=== PATIENT | female | born 1945 | race Caucasian/White ===

== ENCOUNTER 2019-02-08 06:33 | Emergency (ER) | payer MEDICARE ==
[~2019-02-08 06:33] MED LIST: ASPI-757 PO; ASPI-879 PO; CALC100C PO; DIPH-464 PO; DIPH-740 PO; ERG400 PO; HYO375 PO; HYOS0.152 PO; METO-233 PO; METO50TA19 PO; MULTIVIT; NICO-218 TD; PRAV40TA78 PO; RANI-318 PO; RANI-375 PO; [UNRECOGNIZED DRUG - CODE] PO
--- NOTE | 2019-02-08 07:23 | ER Report ---
History and Physical Time Seen By MD: 07:03 Hx. of Stated Complaint: PT FEELS SHORT OF BREATH, DOES NOT FEEL GOOD. HPI/ROS CHIEF COMPLAINT: Patient "doesn't feel well" HISTORY OF PRESENT ILLNESS: Patient is a 73-year-old female who recently had a stroke and October 2018 well in [place]. She is currently on Plavix as an anticoagulant. She states that she is appearing [place] visiting her son because his obyfhk-su-chi . Patient was apparently going back to [place] today but started feeling "not well last night" and this morning noticed some restlessness to her right leg and also some difficulty with balance. He feels that her speech is slow but no obvious slurring is noted. She denies any chest pain or chest pressure. She denies headache. She denies infectious symptoms such as fever cough, congestion. She denies nausea vomiting or abdominal pain. She had a prior stroke with complete resolution in 2012 and was managed here at this hospital. Patient resides in [place] during the winter and in the [place] during the summertime. Patient also feels short of breath at times. She further also feels fatigued and tired. She attributes this fatigue to be more active than usual over the past few days. Despite prior strokes patient does continues to smoke. REVIEW OF SYSTEMS: Constitutional: No fever, no chills. Generalized weakness. Eyes: No discharge. ENT: No sore throat. Cardiovascular: No chest pain, no palpitations. Respiratory: No distress Gastrointestinal: No abdominal pain, no vomiting. Genitourinary: No hematuria. Musculoskeletal: No back pain. Skin: No rashes. Neurological: No headache. Allergies: Coded Allergies: No Known Drug Allergies (Verified , 12/21/07) Home Meds Active Scripts Atorvastatin Calcium (LIPITOR) 20 Mg Tablet, 1 TAB PO QDAY for 90 Days, #90 TAB 0 Refills Prov:GORDO GALICIA MD 02/08/19 Reported Medications Clopidogrel Bisulfate (PLAVIX) 75 Mg Tablet, 1 TAB PO QDAY, TAB 02/08/19 Metoprolol Succinate (METOPROLOL SUCCINATE) 50 Mg Tab.er.24h, 1 TAB PO BID, TAB 10/20/14 Diphenhydramine Hcl (DIPHENHYDRAMINE HCL) 25 Mg Capsule, 25 MG PO Q6-8H, CAPSULE TAKE 1 CAPSULE BY MOUTH EVERY 6 TO 8 HOURS 10/20/14 Ranitidine Hcl (RANITIDINE HCL) 150 Mg Tablet, 1 TAB PO DAILY 10/20/14 Discontinued Reported Medications Aspirin/Calcium Carbonate/Mag (ASPIRIN BUFFERED 325 MG TAB) 325 Mg Tablet, 325 MG PO DAILY 10/20/14 Pravastatin Sodium (PRAVASTATIN SODIUM) 40 Mg Tablet, 1 TAB PO QDAY 10/20/14 Calcium Carbonate/Vitamin D3 (CALCIUM 600 WITH VIT D CHEW TB) 1 Each Tab.chew, 1 EACH PO DAILY, TAB.CHEW 10/20/14 Past Medical/Surgical History Past medical history for hypertension, colitis, partial kidney, eczema, history of cataract extraction, right rotator cuff repair, colonoscopy, hysterectomy, stroke October 2018 Hx Smoking: Yes Smoking Status: Current: Every Day Smoker Hx Substance Use Disorder: No Hx Alcohol Use: Yes Constitutional Vital Sign - Last 24 Hours 02/08/19 02/08/19 02/08/19 02/08/19 06:38 06:39 06:43 06:48 Temp 98.2 Pulse 70 69 Resp 16 15 11 B/P (MAP) 207/110 (142) 207/110 Pulse Ox 88 90 94 O2 Delivery Room Air 02/08/19 02/08/19 02/08/19 02/08/19 06:58 07:00 07:03 07:13 Pulse 66 62 72 Resp 27 17 12 B/P (MAP) 173/93 (119) Pulse Ox 93 94 94 02/08/19 02/08/19 02/08/19 02/08/19 07:18 07:23 07:28 07:30 Pulse 70 66 71 Resp 10 25 0 B/P (MAP) 167/92 (117) Pulse Ox 91 94 92 02/08/19 02/08/19 02/08/19 02/08/19 07:33 07:38 07:51 07:53 Pulse 79 64 Resp 19 6 15 B/P (MAP) 166/85 (112) Pulse Ox 93 94 93 02/08/19 02/08/19 02/08/19 02/08/19 07:58 08:00 08:03 08:08 Pulse 61 63 60 Resp 9 10 8 B/P (MAP) 170/107 (128) Pulse Ox 94 94 96 02/08/19 02/08/19 02/08/19 02/08/19 08:13 08:18 08:23 08:28 Pulse 71 65 63 72 Resp 19 15 16 9 Pulse Ox 96 95 93 93 02/08/19 02/08/19 02/08/19 02/08/19 08:33 08:38 08:43 08:48 Pulse 64 73 63 74 Resp 13 9 10 Pulse Ox 94 94 94 95 02/08/19 02/08/19 02/08/19 02/08/19 09:28 09:30 09:33 09:38 Pulse 62 61 61 B/P (MAP) 160/94 (116) 162/93 (116) Pulse Ox 96 94 94 02/08/19 02/08/19 02/08/19 02/08/19 09:43 09:48 09:53 09:58 Pulse 61 58 63 Pulse Ox 94 95 96 94 02/08/19 02/08/19 02/08/19 02/08/19 10:00 10:03 10:08 10:13 Pulse 68 63 65 B/P (MAP) 149/86 (107) Pulse Ox 94 93 95 Physical Exam General/Constitutional: Patient is awake, alert, nontoxic and in no acute respiratory distress. Head: Normocephalic and atraumatic. Eyes: Conjunctival clear, Pupils are equal and reactive to light. Extraocular muscles are intact and symmetrical. Sclera are clear and anicteric. Ears:External canals are clear. Tympanic membranes are clear with normal landmarks and light reflex. Nares: No rhinorrhea or bleeding. Turbinates are pink and moist. Oropharyngeal: Mucous membranes are moist. There is no pharyngeal erythema or exudate. There are no palatal petechiae. Uvula is midline and symmetrical. Neck: Supple, no adenopathy. Cardiovascular: Heart is regular rate and rhythm without audible murmurs, rubs or gallops. Pulmonary: Lungs are clear to auscultation bilaterally. There are no wheezes, rales, or rhonchi. Chest rise is symmetrical Abdomen: Soft, nontender, no guarding or peritoneal signs. Extremities: No gross deformities, No peripheral cyanosis. Able to move all 4 extremities. Neuro: Alert and oriented X3, Cranial nerves 2 thru 12 are intact and symmetrical. Patient has normal gait. Skin: No rashes, skin is warm dry and well perfused. NIH Stroke Scale: 1 Level of consciousness: Alert -0 Answers both questions correctly-0 Performs both tasks correctly-0 Best Gaze: Normal-0 Visual: No visual loss-0 Facial Palsy: Motor Left Arm: No drift for 10 seconds-0 Motor Right Arm: No drift for 10 seconds-0 Motor Left Leg: No drift for 5 seconds-0 Motor Right Leg: No drift for 5 seconds-0 Limb Ataxia: Absent-0 Sensory: Normal, no sensory loss-0 Best Language: Normal, no aphasia-0 Dysarthria: Mild to moderate dysarthria-1 Extinction and Inattention: No abnormality-0 Medical Decision Making Data Points Result Diagram: 02/08/19 0657 02/08/19 0657 Laboratory Hematology Test 02/08/19 06:57 02/08/19 07:28 Red Blood Count 5.05 M/uL (4.17-5.56) Mean Corpuscular Volume 98.2 fL (80.0-96.0) Mean Corpuscular Hemoglobin 33.7 pg (26.0-33.0) Mean Corpuscular Hemoglobin Concent 34.3 g/dL (32.0-36.0) Red Cell Distribution Width 13.6 % (11.5-14.5) Mean Platelet Volume 8.9 fL (7.2-11.1) Neutrophils (%) (Auto) 65.0 % (39.4-72.5) Lymphocytes (%) (Auto) 25.0 % (17.6-49.6) Monocytes (%) (Auto) 7.5 % (4.1-12.4) Eosinophils (%) (Auto) 1.8 % (0.4-6.7) Basophils (%) (Auto) 0.7 % (0.3-1.4) Nucleated RBC Relative Count (auto) 0.1 /100WBC Neutrophils # (Auto) 3.6 K/uL (2.0-7.4) Lymphocytes # (Auto) 1.4 K/uL (1.3-3.6) Monocytes # (Auto) 0.4 K/uL (0.3-1.0) Eosinophils # (Auto) 0.1 K/uL (0.0-0.5) Basophils # (Auto) 0.0 K/uL (0.0-0.1) Nucleated RBC Absolute Count (auto) 0.00 K/uL Prothrombin Time 12.2 seconds (12.0-14.4) Prothromb Time International Ratio 0.91 Activated Partial Thromboplast Time 39 seconds (23-35) Sodium Level 140 mmol/L (137-145) Potassium Level 3.6 mmol/L (3.5-5.0) Chloride Level 106 mmol/L (98-107) Carbon Dioxide Level 27 mmol/L (22-31) Blood Urea Nitrogen 9 mg/dl (7-18) Creatinine 0.80 mg/dl (0.52-1.04) Glomerular Filtration Rate Calc > 60.0 Random Glucose 103 mg/dl (75-110) Calcium Level 9.7 mg/dl (8.4-10.2) Total Bilirubin 0.4 mg/dl (0.2-1.3) Aspartate Amino Transf (AST/SGOT) 26 U/L (0-35) Alanine Aminotransferase (ALT/SGPT) 19 U/L (0-56) Alkaline Phosphatase 63 U/L (0-126) Troponin I < 0.012 ng/ml Total Protein 7.9 g/dl (6.3-8.2) Albumin 4.5 g/dl (3.5-5.0) Whole Blood Glucose 103 mg/DL (75-110) Chemistry Test 02/08/19 06:57 02/08/19 07:28 White Blood Count 5.6 k/uL (4.5-11.0) Red Blood Count 5.05 M/uL (4.17-5.56) Hemoglobin 17.0 g/dL (12.0-16.0) Hematocrit 49.6 % (34.0-47.0) Mean Corpuscular Volume 98.2 fL (80.0-96.0) Mean Corpuscular Hemoglobin 33.7 pg (26.0-33.0) Mean Corpuscular Hemoglobin Concent 34.3 g/dL (32.0-36.0) Red Cell Distribution Width 13.6 % (11.5-14.5) Platelet Count 231 K/uL (150-450) Mean Platelet Volume 8.9 fL (7.2-11.1) Neutrophils (%) (Auto) 65.0 % (39.4-72.5) Lymphocytes (%) (Auto) 25.0 % (17.6-49.6) Monocytes (%) (Auto) 7.5 % (4.1-12.4) Eosinophils (%) (Auto) 1.8 % (0.4-6.7) Basophils (%) (Auto) 0.7 % (0.3-1.4) Nucleated RBC Relative Count (auto) 0.1 /100WBC Neutrophils # (Auto) 3.6 K/uL (2.0-7.4) Lymphocytes # (Auto) 1.4 K/uL (1.3-3.6) Monocytes # (Auto) 0.4 K/uL (0.3-1.0) Eosinophils # (Auto) 0.1 K/uL (0.0-0.5) Basophils # (Auto) 0.0 K/uL (0.0-0.1) Nucleated RBC Absolute Count (auto) 0.00 K/uL Prothrombin Time 12.2 seconds (12.0-14.4) Prothromb Time International Ratio 0.91 Activated Partial Thromboplast Time 39 seconds (23-35) Glomerular Filtration Rate Calc > 60.0 Calcium Level 9.7 mg/dl (8.4-10.2) Total Bilirubin 0.4 mg/dl (0.2-1.3) Aspartate Amino Transf (AST/SGOT) 26 U/L (0-35) Alanine Aminotransferase (ALT/SGPT) 19 U/L (0-56) Alkaline Phosphatase 63 U/L (0-126) Troponin I < 0.012 ng/ml Total Protein 7.9 g/dl (6.3-8.2) Albumin 4.5 g/dl (3.5-5.0) Whole Blood Glucose 103 mg/DL (75-110) Coagulation Test 02/08/19 06:57 Prothrombin Time 12.2 seconds Prothromb Time International Ratio 0.91 Activated Partial Thromboplast Time 39 seconds EKG/Imaging EKG Interpretation EKG shows normal sinus rhythm with left axis deviation no significant ST segment or T-wave abnormalities are noted. Monitor Interpretation: Normal Sinus Rhythm Imaging FACILITY: [facility] PATIENT NAME: Gavi Hedrick : 1945 MR: [id number] V: [id number] EXAM DATE: ORDERING PHYSICIAN: GORDO GALICIA TECHNOLOGIST: [place] [facility] [place]: Gavi Hedrick : 1945 Visit/Account:[id number] Date of Sevice: 02/08/2019 CT BRAIN NO CONTRAST HISTORY: Weakness. COMPARISON: 04/02/2013. TECHNIQUE: Axial images were obtained from the skull base to the vertex without contrast. Sagittal and coronal reformats were performed. One of the following dose optimization techniques was utilized in the performance of this exam: Automated exposure control; adjustment of the mA and/or kV according to the patient's size; or use of an iterative reconstruction technique. Specific details can be referenced in the facility's radiology CT exam operational policy. CONTRAST: None. FINDINGS: Brain: No intracranial hemorrhage, mass, or edema. There are stable old lacunar infarcts in the bilateral superior basal ganglia.There are nonspecific periventricular white matter low attenuation foci, mild in severity, stable. There is mild calcification of the internal carotid arteries and of the vertebral arteries. Sulci, ventricles, and cisterns: Sulci are prominent, compatible with mild atrophy, normal for age. The ventricles are normal in size and configuration. The basilar cisterns are patent. Osseous structures: Intact. Paranasal sinuses and mastoids: Normal. Orbits and soft tissues: Changes of bilateral lens/cataract surgery. IMPRESSION: 1. Stable appearance of the brain without acute intracranial abnormality. 2. Nonspecific white matter changes are most likely due to chronic microvascular ischemic change, mild in severity, unchanged. Report Dictated By: Ifeoma Lipscomb at 02/08/2019 8:00 AM Report E-Signed By: Ifeoma Lipscomb at 02/08/2019 8:05 AM WSN:[id number] ORDERING PHYSICIAN: GORDO GALICIA TECHNOLOGIST: [place] [facility] [place]: Gavi Hedrick : 1945 Visit/Account:[id number] Date of Sevice: 02/08/2019 MR BRAIN/BRAIN STEM W/O CON History: Weakness COMPARISON STUDIES: Head CT same day, MRI brain 04/02/2013 TECHNIQUE: Multi-planar, multi-sequence brain MRI was performed without IV contrast administration. FINDINGS: Sagittal midline structures: Negative Masses / midline shift: Negative Vessels: Negative Ventricles / sulci: Negative Extra-axial spaces: Negative Hemorrhage: Negative White matter: Periventricular white matter signal is likely on the basis of small vessel disease and has progressed from prior exam. Old periventricular white matter lacunar infarcts are noted. Diffusion: Small focus of restricted diffusion in the left periventricular white matter suggesting acute on chronic infarct. This is slightly more prominent than the MRI from 2013. Calvarium: Negative Paranasal sinuses / mastoid air cells: Negative Orbits: Negative Visualized upper neck: Negative IMPRESSION: 1. Small focus of restricted diffusion in the left periventricular white matter suggesting a small acute infarct. No evidence for hemorrhage. 2. Significant periventricular white matter signal suggests small vessel disease progressed from MRI from 2013. Results were called to GORDO GALICIA at 02/08/2019 9:47 AM. Report Dictated By: Elijah Colón MD at 02/08/2019 9:36 AM Report E-Signed By: Elijah Colón MD at 02/08/2019 9:47 AM WSN:[id number] ED Course/Re-evaluation ED Course 02/08/2019 7:22:06 am patient with weakness perhaps some mild dysarthria. No obvious focal motor weakness noted however some difficulty with balance. Patient's prior history of strokes in the past. He is anticoagulated with Plavix. Onset of symptoms could've been as late as last evening prior to going to bed. Do not feel patient is a candidate for thrombolytics at this time due to low NIH score as well as timing of symptoms which could be greater than 4.5 hour s. At this time will be cardiac workup along with a contrast CT of the brain. We will check her blood counts, electrolytes, urinalysis. 02/08/2019 7:51:19 am she does have a printout of her care while she was in [place] on 11/06/2018. CT of the head revealed no acute hemorrhage or mass effect or midline shift CT angiogram of the head and neck revealed no acute intracranial abnormality, MRI of the brain revealed a punctate lacunar infarct to the left thalamus consistent with small vessel disease, and carotid ultrasound revealed on the right side hyper" practicing the level carotid bulb however no stenosis based on velocity elevation, slightly low right vertebral flow, on the left side hyper" practicing at the level carotid bed without significant stenosis based on velocity elevation, normal left intracranial vertebral flow normal left subclavian flow. 02/08/2019 10:14:[address] Mena with the on-call neurologist at [facility] [place]. History physical exam pertinent past medical history patient medication list, as CT scan findings laboratory values an MRI findings were discussed. It was her impression that the patient should proceed with a outpatient follow-up for cardiac evaluation including a 30 day Holter monitor to look to see evidence of any cardiac dysrhythmia such as atrial fibrillation that might be the source of stroke. She agrees with continuing Plavix she also recommends aspirin as well as atorvastatin. As the patient's symptoms are quite minimal she does not feel that she needs inpatient evaluation and treatment at this time with the caveat that if her symptoms recur or worsen she needs to be seen immediately for medical treatment. Decision to Disposition Date: Feb 08, 2019 Decision to Disposition Time: 10:17 Depart Departure Latest Vital Signs Vital Signs Date Time Temp Pulse Resp B/P (MAP) Pulse Ox O2 Delivery O2 Flow Rate FiO2 02/08/19 10:13 65 95 02/08/19 10:00 149/86 (107) 02/08/19 08:43 10 02/08/19 06:39 98.2 Room Air Impression: Primary Impression: CVA (cerebral vascular accident) Condition: Condition Unchanged Disposition: HOME OR SELF-CARE Referrals: ANALI QIU DO 2 Weeks New Scripts Atorvastatin Calcium (LIPITOR) 20 Mg Tablet 1 TAB PO QDAY for 90 Days, #90 TAB 0 Refills Prov: GORDO GALICIA MD 02/08/19 Patient Instructions: Effects of a Stroke (GEN), Ischemic Stroke (DC) Additional Instructions: Continue Plavix as directed. Start on one 81 mg aspirin daily. Start taking atorvastatin 20 mg by mouth daily. Schedule a follow up appointment with primary care provider to establish care and go over stroke risks and to obtain consultation for cardiac evaluation inclu ding 30 day Holter monitor for recurrent strokes. Go directly to the nearest emergency department if you experienced stroke like symptoms which include facial droop, difficulty speaking, or difficulty moving and extremity Problem Qualifiers Primary Impression: CVA (cerebral vascular accident) CVA mechanism: unspecified Qualified Codes: I63.9 - Cerebral infarction, unspecified GORDO GALICIA MD Feb 08, 2019 07:23
[2019-02-08] MEDS ORDERED: CLOP75TA43 PO (07:32)
[2019-02-08 07:40] LABS: INR 0.91
[2019-02-08 07:42] LABS: PLATELET COUNT, AUTOMATED 231 K/uL (150-450)
--- NOTE | 2019-02-08 07:43 | EKG ---
FACILITY: [facility] PATIENT NAME: MARCUS RAMIREZ : [id number] MR: [id number] V: [id number] EXAM DATE: ORDERING PHYSICIAN: GORDO GALICIA TECHNOLOGIST: Test Reason : weakness Blood Pressure : / mmHG Vent. Rate : 071 BPM Atrial Rate : 071 BPM P-R Int : 176 ms QRS Dur : 070 ms QT Int : 426 ms P-R-T Axes : 061 -38 042 degrees QTc Int : 462 ms Sinus rhythm Left axis deviation Decreased R wave progression anterior leads Abnormal ECG When compared with ECG of 02-APR-2013 14:25, No significant change was found Confirmed by SARAH TOSCANO ([id number]) on 02/08/2019 3:26:33 PM Referred By: Confirmed By:SARAH TOSCANO
--- NOTE | 2019-02-08 08:10 | RADIOLOGY IMAGING REPORT ---
FACILITY: [facility] PATIENT NAME: aGvi Hedrick : 1945 MR: [id number] V: [id number] EXAM DATE: ORDERING PHYSICIAN: GORDO GALICIA TECHNOLOGIST: Location: [facility] - [place] Patient: Gavi Hedrick : 1945 Visit/Account:[id number] Date of Sevice: 02/08/2019 CT BRAIN NO CONTRAST HISTORY: Weakness. COMPARISON: 04/02/2013. TECHNIQUE: Axial images were obtained from the skull base to the vertex without contrast. Sagittal an d coronal reformats were performed. One of the following dose optimization techniques was utilized in the performance of this exam: Autom ated exposure control; adjustment of the mA and/or kV according to the patient's size; or use of an i terative reconstruction technique. Specific details can be referenced in the facility's radiology CT exam operational policy. CONTRAST: None. FINDINGS: Brain: No intracranial hemorrhage, mass, or edema. There are stable old lacunar infarcts in the bilat eral superior basal ganglia.There are nonspecific periventricular white matter low attenuation foci, mild in severity, stable. There is mild calcification of the internal carotid arteries and of the ada tebral arteries. Sulci, ventricles, and cisterns: Sulci are prominent, compatible with mild atrophy, normal for age. T he ventricles are normal in size and configuration. The basilar cisterns are patent. Osseous structures: Intact. Paranasal sinuses and mastoids: Normal. Orbits and soft tissues: Changes of bilateral lens/cataract surgery. IMPRESSION: 1. Stable appearance of the brain without acute intracranial abnormality. 2. Nonspecific white matter changes are most likely due to chronic microvascular ischemic change, mil d in severity, unchanged. Report Dictated By: Ifeoma Lipscomb at 02/08/2019 8:00 AM Report E-Signed By: Ifeoma Lipscomb at 02/08/2019 8:05 AM WSN:[id number]
--- NOTE | 2019-02-08 09:51 | RADIOLOGY IMAGING REPORT ---
[place] [facility] [place]IENT NAME: Gavi Hedrick : 1945 MR: [id number] V: [id number] EXAM DATE: ORDERING PHYSICIAN: GORDO GALICIA TECHNOLOGIST: Location: [facility] - [place] Patient: Gavi Hedrick : 1945 Visit/Account:[id number] Date of Sevice: 02/08/2019 MR BRAIN/BRAIN STEM W/O CON History: Weakness COMPARISON STUDIES: Head CT same day, MRI brain 04/02/2013 TECHNIQUE: Multi-planar, multi-sequence brain MRI was performed without IV contrast administration. FINDINGS: Sagittal midline structures: Negative Masses / midline shift: Negative Vessels: Negative Ventricles / sulci: Negative Extra-axial spaces: Negative Hemorrhage: Negative White matter: Periventricular white matter signal is likely on the basis of small vessel disease and has progressed from prior exam. Old periventricular white matter lacunar infarcts are noted. Diffusion: Small focus of restricted diffusion in the left periventricular white matter suggesting ac [place] on chronic infarct. This is slightly more prominent than the MRI from 2013. Calvarium: Negative Paranasal sinuses / mastoid air cells: Negative Orbits: Negative Visualized upper neck: Negative IMPRESSION: 1. Small focus of restricted diffusion in the left periventricular white matter suggesting a small ac [place] infarct. No evidence for hemorrhage. 2. Significant periventricular white matter signal suggests small vessel disease progressed from MRI from 2012. Results were called to GORDO GALICIA at 02/08/2019 9:47 AM. Report Dictated By: Elijah Colón MD at 02/08/2019 9:36 AM Report E-Signed By: Elijah Colón MD at 02/08/2019 9:47 AM WSN:[id number]
[2019-02-08 10:00] VITALS: BP 149/86
[2019-02-08] MEDS ORDERED: ATOR20TA22 PO (10:19)
== END 2019-02-08 10:34 | disposition home or self-care (01) ==
LOC: ER 07:03
DX: I63.9 Cerebral infarction, unspecified (principal); F17.210 Nicotine dependence, cigarettes, uncomplicated
CPT/HCPCS: 36416; 70450; 70551; 82040; 82247; 82310; 82374; 82435; 82565; 82947; 82948; 84075; 84132; 84155; 84295; 84450; 84460; 84484; 84520; 85025; 85610; 85730; 93005; 99284

== ENCOUNTER 2019-03-05 16:01 | Emergency (ER) | payer MEDICARE ==
[~2019-03-05 16:01] MED LIST changes: +ATOR20TA22 PO; +CLOP75TA43 PO
[2019-03-05] MEDS ORDERED: ASPI-1471 PO (16:11)
--- NOTE | 2019-03-05 16:28 | ER Report ---
History and Physical Time Seen By MD: 16:18 Hx. of Stated Complaint: HEAD OF MATHEMATICS DECREASED BLOOD PRESSURE MEDICATION APPROX 1 WEEKS AGO. WHEN CHECKED AT PT IT WAS ELEVATED - DENIES CHEST PAIN. NOTED SOB INTERMITTENTLY FOR 1 WEEK. (GORDO ESPINAL MD) HPI/ROS CHIEF COMPLAINT: Shortness of breath, elevated blood pressure HISTORY OF PRESENT ILLNESS: 73-year-old female who is 3 weeks status post her second stroke this year, which left her with some difficulty speaking. She states she's had mild sob since cva, primarily on exerton, She has had occ non productive cough x 1 week. No increase in dyspnea over past wk. No chest pain or shortness of breath. Her it auditor recently decreased a bp med in half and at pt today it was noted she was hypertensive to 190 systolic. She denies monzon, leg swelling, or other acute sympoms. REVIEW OF SYSTEMS: Constitutional: No fever, no chills. Eyes: No discharge. ENT: No sore throat. Cardiovascular: No chest pain, no palpitations. Respiratory: above Gastrointestinal: No abdominal pain, no vomiting. Genitourinary: no dysuria Musculoskeletal: No back pain. Skin: No rashes. Neurological: No headache. Remainder of the 14 system rev: Yes (GORDO SEPINAL MD) Allergies: Coded Allergies: No Known Drug Allergies (Verified , 03/05/19) Home Meds Active Scripts Atorvastatin Calcium (LIPITOR) 20 Mg Tablet, 1 TAB PO QDAY for 90 Days, #90 TAB 0 Refills Prov:GORDO GALICIA MD 02/08/19 Reported Medications Aspirin (ASPIR 81) 81 Mg Tablet.dr, 81 MG PO QDAY, TAB 03/05/19 Clopidogrel Bisulfate (PLAVIX) 75 Mg Tablet, 1 TAB PO QDAY, TAB 02/08/19 Metoprolol Succinate (METOPROLOL SUCCINATE) 50 Mg Tab.er.24h, 0.5 TAB PO BID, TAB 10/20/14 Ranitidine Hcl (RANITIDINE HCL) 150 Mg Tablet, 1 TAB PO DAILY 10/20/14 Discontinued Reported Medications Diphenhydramine Hcl (DIPHENHYDRAMINE HCL) 25 Mg Capsule, 25 MG PO Q6-8H, CAPSULE TAKE 1 CAPSULE BY MOUTH EVERY 6 TO 8 HOURS 10/20/14 Reviewed Nurses Notes: Yes Old Medical Records Reviewed: Yes (GORDO ESPINAL MD) Hx Smoking: Yes Smoking Status: Current: Every Day Smoker Hx Substance Use Disorder: No Hx Alcohol Use: Yes (GORDO ESPINAL MD) Constitutional Vital Sign - Last 24 Hours 03/05/19 03/05/19 03/05/19 03/05/19 16:07 16:07 16:30 17:00 Temp 97.5 Pulse 64 62 61 Resp 20 22 29 B/P (MAP) 177/99 174/90 (118) 159/93 (115) Pulse Ox 85 97 96 O2 Delivery Room Air O2 Flow Rate 1.0 03/05/19 03/05/19 03/05/19 03/05/19 17:05 17:20 17:30 17:35 Pulse ??? 59 ??? Resp 12 B/P (MAP) 155/91 (112) Pulse Ox 98 03/05/19 03/05/19 03/05/19 03/05/19 17:50 18:00 18:05 18:20 Pulse 63 ??? 65 Resp 10 B/P (MAP) ???/??? (708) Pulse Ox 97 93 03/05/19 03/05/19 03/05/19 03/05/19 18:30 18:35 19:51 19:51 Pulse 60 64 Resp 18 B/P (MAP) ???/??? (1385) Pulse Ox 95 93 O2 Delivery Nasal Cannula O2 Flow Rate 2.0 03/05/19 03/05/19 19:57 20:25 Pulse 67 84 Resp 18 16 B/P (MAP) 157/84 (108) Pulse Ox 91 O2 Delivery Room Air (MIRANDA SARABIA DO) Physical Exam General Appearance: The patient is alert, has no immediate need for airway protection and no signs of toxicity. [ ] Eyes: Pupils equal and round no pallor or injection. ENT, Mouth: Mucous membranes are moist. Respiratory: There are no retractions, lungs are clear to auscultation. Cardiovascular: Regular rate and rhythm. No murmurs rubs or gallops. No carotid bruits. Gastrointestinal: Abdomen is soft and non tender, no masses, bowel sounds norm al. Neurological: alert, oriented, nad. 02/15 ue = le Skin: Warm and dry, no rashes. Musculoskeletal: Neck is supple non tender. Extremities are nontender, nonswollen and have full range of motion. DIFFERENTIAL DIAGNOSIS: After history and physical exam differential diagnosis was considered for pneumonia, pe, acs, pneumothorax, cva, hypertensive emergency, or other emergent etiology of symptoms. (GORDO ESPINAL MD) Medical Decision Making Data Points Result Diagram: 03/05/19 1612 03/05/19 1612 Laboratory Hematology Test 03/05/19 00:00 03/05/19 16:12 03/05/19 17:36 Prothrombin Time 12.4 seconds (12.0-14.4) Prothromb Time International Ratio 0.92 Activated Partial Thromboplast Time 30 seconds (23-35) D-Dimer Quantitative (PE/DVT) 2.93 ug/ml (0-0.50) Red Blood Count 5.18 M/uL (4.17-5.56) Mean Corpuscular Volume 98.4 fL (80.0-96.0) Mean Corpuscular Hemoglobin 33.1 pg (26.0-33.0) Mean Corpuscular Hemoglobin Concent 33.6 g/dL (32.0-36.0) Red Cell Distribution Width 13.4 % (11.5-14.5) Mean Platelet Volume 9.4 fL (7.2-11.1) Neutrophils (%) (Auto) 67.3 % (39.4-72.5) Lymphocytes (%) (Auto) 23.0 % (17.6-49.6) Monocytes (%) (Auto) 7.3 % (4.1-12.4) Eosinophils (%) (Auto) 1.7 % (0.4-6.7) Basophils (%) (Auto) 0.7 % (0.3-1.4) Nucleated RBC Relative Count (auto) 0.2 /100WBC Neutrophils # (Auto) 4.9 K/uL (2.0-7.4) Lymphocytes # (Auto) 1.7 K/uL (1.3-3.6) Monocytes # (Auto) 0.5 K/uL (0.3-1.0) Eosinophils # (Auto) 0.1 K/uL (0.0-0.5) Basophils # (Auto) 0.1 K/uL (0.0-0.1) Nucleated RBC Absolute Count (auto) 0.02 K/uL Peripheral Blood Smear Yes Y/N Sodium Level 139 mmol/L (137-145) Potassium Level 3.6 mmol/L (3.5-5.0) Chloride Level 103 mmol/L (98-107) Carbon Dioxide Level 28 mmol/L (22-31) Blood Urea Nitrogen 10 mg/dl (7-18) Creatinine 0.70 mg/dl (0.52-1.04) Glomerular Filtration Rate Calc > 60.0 Random Glucose 91 mg/dl (75-110) Calcium Level 9.9 mg/dl (8.4-10.2) Total Bilirubin 0.4 mg/dl (0.2-1.3) Aspartate Amino Transf (AST/SGOT) 29 U/L (0-35) Alanine Aminotransferase (ALT/SGPT) 16 U/L (0-56) Alkaline Phosphatase 73 U/L (0-126) Troponin I < 0.012 ng/ml Total Protein 8.2 g/dl (6.3-8.2) Albumin 4.8 g/dl (3.5-5.0) Urine Color Yellow Urine Clarity Clear Urine pH 5.0 pH (4.8-9.5) Urine Specific [place] 1.006 Urine Protein Negative mg/dL (NEGATIVE) Urine Glucose (UA) Negative mg/dL (NEGATIVE) Urine Ketones Negative mg/dL (NEGATIVE) Urine Blood Small (NEGATIVE) Urine Nitrite Negative (NEGATIVE) Urine Bilirubin Negative (NEGATIVE) Urine Urobilinogen Negative mg/dL (0.2-1.9) Urine Leukocyte Esterase Moderate (NEGATIVE) Urine RBC 3 /HPF (0-2/HPF) Urine WBC 23 /HPF (0-5/HPF) Urine Squamous Epithelial Cells Many /LPF (</=FEW) Urine Bacteria Few /HPF (NONE-FEW) Urine Mucus None /HPF (NONE-FEW) Chemistry Test 03/05/19 00:00 03/05/19 16:12 03/05/19 17:36 Prothrombin Time 12.4 seconds (12.0-14.4) Prothromb Time International Ratio 0.92 Activated Partial Thromboplast Time 30 seconds (23-35) D-Dimer Quantitative (PE/DVT) 2.93 ug/ml (0-0.50) White Blood Count 7.3 k/uL (4.5-11.0) Red Blood Count 5.18 M/uL (4.17-5.56) Hemoglobin 17.1 g/dL (12.0-16.0) Hematocrit 51.0 % (34.0-47.0) Mean Corpuscular Volume 98.4 fL (80.0-96.0) Mean Corpuscular Hemoglobin 33.1 pg (26.0-33.0) Mean Corpuscular Hemoglobin Concent 33.6 g/dL (32.0-36.0) Red Cell Distribution Width 13.4 % (11.5-14.5) Platelet Count 275 K/uL (150-450) Mean Platelet Volume 9.4 fL (7.2-11.1) Neutrophils (%) (Auto) 67.3 % (39.4-72.5) Lymphocytes (%) (Auto) 23.0 % (17.6-49.6) Monocytes (%) (Auto) 7.3 % (4.1-12.4) Eosinophils (%) (Auto) 1.7 % (0.4-6.7) Basophils (%) (Auto) 0.7 % (0.3-1.4) Nucleated RBC Relative Count (auto) 0.2 /100WBC Neutrophils # (Auto) 4.9 K/uL (2.0-7.4) Lymphocytes # (Auto) 1.7 K/uL (1.3-3.6) Monocytes # (Auto) 0.5 K/uL (0.3-1.0) Eosinophils # (Auto) 0.1 K/uL (0.0-0.5) Basophils # (Auto) 0.1 K/uL (0.0-0.1) Nucleated RBC Absolute Count (auto) 0.02 K/uL Peripheral Blood Smear Yes Y/N Glomerular Filtration Rate Calc > 60.0 Calcium Level 9.9 mg/dl (8.4-10.2) Total Bilirubin 0.4 mg/dl (0.2-1.3) Aspartate Amino Transf (AST/SGOT) 29 U/L (0-35) Alanine Aminotransferase (ALT/SGPT) 16 U/L (0-56) Alkaline Phosphatase 73 U/L (0-126) Troponin I < 0.012 ng/ml Total Protein 8.2 g/dl (6.3-8.2) Albumin 4.8 g/dl (3.5-5.0) Urine Color Yellow Urine Clarity Clear Urine pH 5.0 pH (4.8-9.5) Urine Specific [place] 1.006 Urine Protein Negative mg/dL (NEGATIVE) Urine Glucose (UA) Negative mg/dL (NEGATIVE) Urine Ketones Negative mg/dL (NEGATIVE) Urine Blood Small (NEGATIVE) Urine Nitrite Negative (NEGATIVE) Urine Bilirubin Negative (NEGATIVE) Urine Urobilinogen Negative mg/dL (0.2-1.9) Urine Leukocyte Esterase Moderate (NEGATIVE) Urine RBC 3 /HPF (0-2/HPF) Urine WBC 23 /HPF (0-5/HPF) Urine Squamous Epithelial Cells Many /LPF (</=FEW) Urine Bacteria Few /HPF (NONE-FEW) Urine Mucus None /HPF (NONE-FEW) Coagulation Test 03/05/19 00:00 Prothrombin Time 12.4 seconds Prothromb Time International Ratio 0.92 Activated Partial Thromboplast Time 30 seconds D-Dimer Quantitative (PE/DVT) 2.93 ug/ml Urinalysis Test 03/05/19 17:36 Urine Color Yellow Urine Clarity Clear Urine pH 5.0 pH (4.8-9.5) Urine Specific [place] 1.006 Urine Protein Negative mg/dL (NEGATIVE) Urine Glucose (UA) Negative mg/dL (NEGATIVE) Urine Ketones Negative mg/dL (NEGATIVE) Urine Blood Small (NEGATIVE) Urine Nitrite Negative (NEGATIVE) Urine Bilirubin Negative (NEGATIVE) Urine Urobilinogen Negative mg/dL (0.2-1.9) Urine Leukocyte Esterase Moderate (NEGATIVE) Urine RBC 3 /HPF (0-2/HPF) Urine WBC 23 /HPF (0-5/HPF) Urine Squamous Epithelial Cells Many /LPF (</=FEW) Urine Bacteria Few /HPF (NONE-FEW) Urine Mucus None /HPF (NONE-FEW) (MIRANDA SARABIA DO) EKG/Imaging EKG Interpretation 12 lead EKG: Rhythm: normal sinus rhythm [place]: left QRS: normal ST segments: normal Monitor Interpretation: Normal Sinus Rhythm (GORDO ESPINAL MD) ED Course/Re-evaluation ED Course 73 f presents with elevated bp without sgs of chf, htn emergency. She presents hypoxic on room air and mild dyspnea x 3 wks. EKG unremarkable, trop neg. Doubt atypical presentation of acs. Dimer neg, on plavix/asa; doubt PE. T/o awaiting CT to Dr. Sarabia. Pt aware of t/o. Reassess 02 status. (GORDO ESPINAL MD) ED Course Care assumed at shift change awaiting diagnostic CTA pulmonary angiogram. The [place]gett was negative for pulmonary embolism. There were some pulmonary nodules. Patient with centrilobar is edema noted. Patient was treated with a DuoNeb. Her room air saturations after the DuoNeb remained in the low 90s. Occasionally, she drifts to 88 when she is talking. Patient was offered the option of going home on O2. She would prefer not to. I advised her follow-up with Dr. Massey her primary care doctor next week for a pulse ox evaluation Decision to Disposition Date: March 05, 2019 Decision to Disposition Time: 19:51 (MIRANDA SARABIA DO) Depart Departure Latest Vital Signs Vital Signs Date Time Temp Pulse Resp B/P (MAP) Pulse Ox O2 Delivery O2 Flow Rate FiO2 03/05/19 20:25 84 16 157/84 (108) 91 Room Air 03/05/19 19:51 2.0 03/05/19 16:07 97.5 (MIRANDA SARABIA DO) Impression: Primary Impression: Hypoxia Additional Impressions: Emphysema, unspecified History of CVA with residual deficit Condition: Improved Disposition: HOME OR SELF-CARE Referrals: ANALI MASSEY DO Patient Instructions: Emphysema (ED), Hypoxia (ED) Additional Instructions: Follow-up with for recheck of your pulse ox early next week Return to the ER for any worsening Problem Qualifiers Additional Impressions: Emphysema, unspecified Emphysema type: centrilobular Qualified Codes: J43.2 - Centrilobular emphysema GORDO ESPINAL MD March 05, 2019 16:28 MIRANDA SARABIA DO March 05, 2019 19:54
[2019-03-05 16:49] LABS: PLATELET COUNT, AUTOMATED 275 K/uL (150-450)
--- NOTE | 2019-03-05 17:41 | RADIOLOGY IMAGING REPORT ---
FACILITY: [facility] - [place] PATIENT NAME: Gavi Hedrick : 1945 MR: [id number] V: [id number] EXAM DATE: ORDERING PHYSICIAN: GORDO ESPINAL TECHNOLOGIST: Location: [facility] - [place], [place] Patient: Gavi Hedrick : 1945 Visit/Account:[id number] Date of Sevice: 03/05/2019 CHEST PA LAT Indication: dyspnea Comparison: Chest x-ray 04/02/2013 Findings: Lungs: Clear. Mediastinum/pulmonary vasculature: Heart size and pulmonary vasculature are normal. Bones/soft tissues: Normal. IMPRESSION: Clear lungs. Report Dictated By: Elias Abad at 03/05/2019 5:35 PM Report E-Signed By: Elias Abad at 03/05/2019 5:36 PM WSN:[id number]
[2019-03-05 17:56] LABS: INR 0.92
--- NOTE | 2019-03-05 18:01 | RADIOLOGY IMAGING REPORT ---
FACILITY: [facility] - [place], [place] PATIENT NAME: Gavi Hedrick : 1945 MR: [id number] V: [id number] EXAM DATE: ORDERING PHYSICIAN: GORDO ESPINAL TECHNOLOGIST: [place] [facility] [place] Patient: Gavi Hedrick : 1945 Visit/Account:[id number] Date of Sevice: 03/05/2019 Study: CT scan of the brain without intravenous contrast. Indication: Dyspnea, fall Comparison study:None Technique: Multiple axial images were obtained through the brain without the use of intravenous contr ast. One of the following dose optimization techniques was utilized in the performance of this exam: Autom ated exposure control; adjustment of the mA and/or kV according to the patient's size; or use of an i terative reconstruction technique. Specific details can be referenced in the facility's radiology C T exam operational policy. The examination demonstrates no evidence of acute intracranial hemorrhage. There is no evidence of ex tra-axial collection or hydrocephalus. There are old small vessel infarcts involving the caudate nucleus bilaterally. There are chronic isch emic white matter changes present. There is no evidence of disruption of the peripheral noble-white junction. The bony structures are unremarkable. IMPRESSION: No acute intracranial abnormality identified. Report Dictated By: Rowdy Boss at 03/05/2019 5:50 PM Report E-Signed By: Rowdy Boss at 03/05/2019 5:55 PM WSN:[id number]
[2019-03-05] MEDS ORDERED: IOPAMIDOL 76% 100 ML INFUS BTL 100 ML ONE ×2 (18:07→18:43)
[2019-03-05] MEDS ORDERED: NS(*) 0.9% 50 ML BAG 50 ML ONE ×2 (18:08→18:43)
--- NOTE | 2019-03-05 18:35 | EKG ---
FACILITY: [facility] PATIENT NAME: MARCUS RAMIREZ : [id number] MR: [id number] V: [id number] EXAM DATE: ORDERING PHYSICIAN: GORDO ESPINAL TECHNOLOGIST: RUFINA Test Reason : SOB Blood Pressure : / mmHG Vent. Rate : 060 BPM Atrial Rate : 060 BPM P-R Int : 172 ms QRS Dur : 072 ms QT Int : 442 ms P-R-T Axes : 056 -30 040 degrees QTc Int : 442 ms Normal sinus rhythm with sinus arrhythmia Left axis deviation Poor R V1-6 may be due to lead placement but cannot rule out old anterior infarction. Abnormal ECG When compared with ECG of 08-FEB-2019 07:28, Previous ECG has undetermined rhythm, needs review Confirmed by GONZALEZ WOOTEN ([id number]) on 03/05/2019 9:10:44 PM Referred By: TEDDY Confirmed By:GONZALEZ WOOTEN
[2019-03-05] MEDS ORDERED: ONDANSETRON 4 MG/2 ML VIAL IVP ONE (19:10)
--- NOTE | 2019-03-05 19:33 | RADIOLOGY IMAGING REPORT ---
FACILITY: [facility] [place] PATIENT NAME: Gavi Hedrick : 1945 MR: [id number] V: [id number] EXAM DATE: ORDERING PHYSICIAN: GORDO ESPINAL TECHNOLOGIST: Location: [facility] - [place] Patient: Gavi Hedrick : 1945 Visit/Account:[id number] Date of Sevice: 03/05/2019 CT angiogram chest with contrast Indication: Hypoxia. Elevated d-dimer. Comparison: None available. Technique: Axial CT images are obtained through the chest after administration of 75 mL Isovue 370 IV contrast. Reformatted coronal and sagittal images were reviewed as well as coronal MIP images. One o f the following dose optimization techniques was utilized in the performance of this exam: Automated exposure control; adjustment of the mA and/or kV according to the patient's size; or use of an iterat tez reconstruction technique. Specific details can be referenced in the facility's radiology CT exa m operational policy. FINDINGS: No evidence of filling defect within the pulmonary vasculature to suggest pulmonary embolus. There is no axillary adenopathy. No enlarged mediastinal nodes are seen. There is no pericardial effu ivan or pleural effusion identified. A mildly enlarged right hilar node is seen on image 49 which olga lidia sures 12 mm in short axis. A borderline lymph node in the left hilum on image 50 measures 10 mm in sh ort axis. There are atherosclerotic calcifications within the aortic arch as well as the arch vessels. Coronary artery atherosclerosis is present. Calcifications extend to the descending aorta as well as the uppe r abdominal aorta. Examination of the lung windows demonstrates mild changes of centrilobular emphysema most pronounced within the upper lobes. Within the right upper lobe, there are 2 adjacent nodules seen on image 50. O ne of these measures 9 mm and the other measures 3 mm in size. There is dependent atelectasis involvi ng both lung bases. No discrete left-sided nodule. No focal infiltrate or air bronchograms are identi fied. There is a small hiatal hernia. No thoracic compression fracture is seen. IMPRESSION: 1. No evidence of acute pulmonary embolism. 2. Indeterminant nodules within the right upper lobe. See follow-up recommendations below. 3. Atherosclerosis involving the thoracic aorta, the abdominal aorta and the coronary arteries. 4. Mildly enlarged right hilar lymph node with a borderline enlarged left hilar node. These are nonsp ecific. Attention can be paid to these nodes on the follow-up scans for the pulmonary nodules. [employer] FOLLOW-UP GUIDELINES FOR NEWLY DETECTED INCIDENTAL NODULES IN PERSONS 35 YEARS OF AGE OR OLDER. *These recommendations do NOT apply to lung cancer screening, patients with immunosuppression or tico ents with a known primary malignancy. MULTIPLE SUBSOLID NODULES If nodule size is < 6 mm: * CT at 3-6 months to confirm persistence, then consider CT at 2 and 4 years in selected high risk p atients. If nodule size is > or equal to 6 mm: * CT at 3-6 months to confirm persistence. Subsequent management based on the most suspicious nodul e(s). LOW RISK PATIENT: Minimal or absent history of tobacco use and of other known risk factors. HIGH RISK PATIENT: Tobacco use, family history of lung cancer, upper pulmonary lobe location of nodul e, presence of emphysema, pulmonary fibrosis, older age. Ramiro H, Razia DP, Delbert SPRAGUE, et al. Guidelines for Management of Incidental Pulmonary Nodules Dete cted on CT Images: From the Fleischner Society 2017. Radiology. uchnipn Report Dictated By: Rodriguez Lea at 03/05/2019 7:19 PM Report E-Signed By: Rodriguez Lea at 03/05/2019 7:29 PM WSN:[id number]
[2019-03-05] MEDS ORDERED: ALBUTEROL/IPRATROPIUM 3 ML NEB NEB ONE (19:50)
[2019-03-05 20:25] VITALS: BP 157/84
== END 2019-03-05 20:21 | disposition home or self-care (01) ==
LOC: ER 16:10
DX: J43.2 Centrilobular emphysema (principal); R09.02 Hypoxemia; Z86.73 Personal history of transient ischemic attack (TIA), and cerebral infarction without residual deficits; R91.8 Other nonspecific abnormal finding of lung field; R79.89 Other specified abnormal findings of blood chemistry; R59.0 Localized enlarged lymph nodes
CPT/HCPCS: 70450; 71046; 71275; 81001; 84484; 85025; 85379; 85610; 85730; 93005; 94640; 99284; J7050; J7620; Q9967; 82040; 82247; 82310; 82374; 82435; 82565; 82947; 84075; 84132; 84155; 84295; 84450; 84460; 84520

== ENCOUNTER 2019-04-20 10:00 | Outpatient (RCR) | payer MEDICARE ==
--- NOTE | 2019-03-02 15:14 | OT INITIAL EVALUATION ---
SUBJECTIVE: Patient is a 73 year old right hand dominate female referred to OP OT services for evaluation and continuation of treatment status post CVA that occurred on 02/08/2019. Patient reports that she had another stroke 4 years ago and then had another this year in October when she was in [place]. Her and live in [place] during the quiroz and [place] during the winter months. Patient states that she has never participated in any formal rehab after any of her CVAs. Patient states that she is able to complete her self cares, but that it takes her a long time and she gets tired easily. Patient does have help from her and she has other family who live in town. Patient is doing some of the domestic chores at home, but it takes her a long time. 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 Right = 39.7# (Age/gender normative= 49.6#) Left=41.7# (Age/gender normative= 41.5#) Lateral Pinch Right = 12.8# (Age/gender normative= 14.5#) Left=11.7# (Age/gender normative= 13.8#) 3 Point Pinch Right =10.7# (Age/gender normative=14.4#) Left=12# (Age/gender normative= 14#) Sensation: Patient has intact sensation in the fingertips, but reports of decreased sensation in her palm, forearm, right shoulder-this has lola this way since her stroke in October Vision: no changes in her vision Special Test: 9 Hole Peg Test (dexterity) Right= 36 seconds (Age/gender normative= 20.2seconds) Left= 27 seconds (Age/gender normative= 22 seconds) ASSESSMENT Patient presents with decreased right upper body strength including breastfeeding peer counselor and pinch and fine motor coordination . The decrease in overall endurance, strength and coordination have affected the patient's ability to perform her self cares independently and in a timely manner. Patient to benefit from OP OT services to increase UB strength, coordination, and functional endurance to improve independence with self cares. Short Term Goals 1.Patient will increase breastfeeding peer counselor strength on the right hand by 5# in order to hold objects. 2.Patient will increase right hand lateral pinch by 2 # in order to open up containers. 3.Patient will decrease time on the 9 Hole Peg test by 5 seconds in order to complete ADLs in a timely manner. PLAN: Plan to see patient 2 times a week for 8-12 weeks to increase improve independence with ADLs and IADLs. Plan of care to include ther ex, ther act, self cares, energy conservation Thank you for this referral. If you have any questions, concerns, or comments about this report or plan, please contact me at [phone]. Christina Castanon MS, OTR/L Occupational Therapist Provider Signature Date MTDD
--- NOTE | 2019-03-03 09:05 | PT INITIAL EVALUATION ---
MEDICAL DIAGNOSIS: I69.351 Hemiplegia and hemiparesis following CVA affecting R side TREATMENT DIAGNOSIS: Same, altered gait, imbalance DATE OF ONSET: 02/08/19 SUBJECTIVE: Gavi Hedrick (Barb) presents to PT for R sided weakness, change of mobility, gait and balance after a possible CVA after her CVA of 02/08/19. She lives in a multi level home, her drives. She would like to return to moving as fast and smoothly as before and stop falling. He r has caught her a couple of time and she fell fully once since a CVA 10/2018. 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 OBJECTIVE: Posture: Heels 8" apart, steady midline head and trunk. ROM: LE's PROM WNL. Strength: R LE 4-/5 except R Tib. ant. 4/5, calf 3-/5, L LE 4+/5. Special Tests: Negative clonus R ankle. Mobility: Five times sit/stand 23 seconds, norm for 70 - 79 y/o is 12.6 seconds, recurrent fallers predicted at 15.0 seconds. Geno performs sit/stand slowly with mild A/P imbalance. Gait: Slow cadance, heels apart, R fore foot scuff, turn slowly with control. Balance: Burden Balance Assessment 41, a high fall risk. Geno has retro balance loss with sit/stand, turning L and R, 6" box taps (2 reps = LOB). Double limb support only. ASSESSMENT: Gavi Hedrick has R hemiparesis, altered balance and gait, high fall risk after a CVA's in 2019. She's an excellent candidate to strengthen, retrain her balance and gait to improve function, reduce fall risk. Short Term Goals/Patient's Goals 1 month: Geno transfers 5x sit/groundskeeping maintenance 12/6 seconds, demonstrates pelvic WS in standing transfers, gait with even stride length. 2 months: Geno demonstrates corrective balance reactions, demonstrates postural control with retro balance perturbation, uses stairs, community ambulation at normal speed. PLAN: Patient to be seen for Strengthening/condition, Stretching, Neuromuscular Re-ed, Gait Trg/Balance Trg, Home Exercise Program for 2x/Week for 2 Months Thank you for this referral. If you have any questions, comments, or concerns about this report or plan, please contact me at . [facility]
--- NOTE | 2019-03-11 13:28 | SPEECH INITIAL EVALUATION ---
SPEECH THERAPY ASSESSMENT Physician: Yudi Salgado M.D. Clinician: Cyn Grewal MS, CCC-WAIST FITTER Type of Assessment: Cognitive and Voice Evaluation Patient: Gavi Hedrick : 1945, 73yo Evaluation Date: 03/02/19 and 03/05/19 BACKGROUND The patient is an 73yr old female with recent changes in vocal quality as well as changes in memory post CVA in January of 2019. The patient also had a CVA in October 2018 and another in October 2013. She She attended the assessment with her spouse, Abraham. She presents with decreased vocal quality and cognition characterized by low volume and reduced memory recall during conversations and daily life. Pt reports that her memory is unreliable at best and that she often forgets appointments and daily activities without reminders. EVALUATION RESULTS: The Siddhartha Cognitive Assessment (MoCA) was administered with the following results: -MoCA Total Score (TS): 26/30 = mild cognitive impairment (MCI) Cognitive- Linguistic deficits impact swallow function/safety, or response to therapy: No Functional Communication Deficits: The patient has functional communication for safety and independence in the home and community. Mildly distorted speech sounds are present reducing overall intelligibility to approximately 90%. The patient had the most difficulty with delayed recall, but with category and multiple choice cues, was able to recall all 5 words. Functional Communication Deficits impact swallow function/safety, or response to therapy: No BNT [place] Naming Test The BNT is a neuropsychological assessment tool to measure confrontational word retrieval in individuals with aphasia or other language disturbance. The BNT was administered with the following results: Raw Score 58/60= 97% The patient had difficulty naming two words, and had a 3 second delay with another word. One word was named with a phonemic cue, and the other was named with multiple choice assist. While the BNT does not show any deficit in word finding, the patient did say that she has noticed deficits during daily conversation and that this was one of her primary concerns. The patient reported that giving herself extra time to think of the word generally helps and that her is very supportive and gives her this extra time during conversations. Vocal Hygiene: Hydration: 3-4 cups of water/day Tobacco: current every day smoker Caffeine: Yes, 2 cups a day Alcohol: Yes Vocal Activities: occasionally speaks in noisy environment Oral Mechanism Examination: unremarkable Assessment of Respiration Intermittent short, shallow breaths noted during conversation. This was more notable during vocal assessment tasks (i.e., sustained vowel production). Assessment of Phonation and Intensity Maximum Phonation Time: average of 17 seconds for sustained vowel production indicating within normal glottal efficiency (norm 15-25 seconds for adult female). S/Z Ratio: 1.2 95% of people who have a vocal fold pathology have an S/Z ratio of greater than 1.40 Pitch: Average mid pitch during vowel production: 219hz Average intensity during vowel production: 67dB Pt participated in a reading task with a standard reading passage (The Grandfather Passage). Average pitch during reading was 154hz and average volume was 72dB. Pitch variation was WNL during sustained phonation tasks and during conversation. Assessment of Resonance: unremarkable. WNL Overall Vocal Quality: mild deficits. Dominant features that contribute to reduced vocal quality include strain, low volume, poor respiratory support. Mild deficits in articulatory accuracy are reducing overall intelligibility to approximately 90%. Vocal Fatigue: Pt experiences vocal fatigue following extended periods of talking with decline in vocal quality. Pt vocal quality was notably more strained and hoarse following this assessment and pt reported an increased experience of vocal strain. OUTCOME MEASURES Stroke Impact Scale 2.0 (SIS) The SIS is a patient completed outcome measure that uses a 5-point Likert scale to rate the effects of a mild to moderate stroke on 5 factors of daily life. The 5 factors are emotion, communication, memory, and social participation, with the 5th domain encompassing 4 physical domains (strength, hand function, mobility, and ADL/IADL). The mean score of The SIS also includes a [place] Recovery Scale. The patient is asked to respond to, how much have you recovered from your stroke? using a scale of 0-100 with 100 repressing full recovery and 0 representing no recovery. The patient's response is reflected next to question category #9. Stroke Impact Scale 3.0 Questions Categories Transformed Score 1.These questions are about the physical problems that may have occurred as a result of your stroke. 65 2.These questions are about your memory and thinking. 54.28 3.These questions are about how you feel, about changes in your mood, and about your ability to control your emotions since your stroke. 68.88 4.The following items are about your ability to communicate with other people as well as your ability to understand what you read and what you hear in conversation. 60 5.The following items ask about activities you might do during a typical day. 60 6.The following questions are about your ability to be mobile at home and in the community. 46.6 7.The following questions are about your ability to use your hand that was most affected by your stroke. 40 8.The following questions are about how stroke has affected your ability to participate in the activities that you usually do, things that are meaningful to you, and things that help you to find purpose in life. 37.5 9. 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 She also presents with a mild cognitive impairment characterized by decreased memory and word finding abilities during daily conversations. Functional deficits include functional, physical, and emotional handicap. While literal and semantic paraphasias were not present in speech during the evaluation, word finding is a large concern of Mrs. Hedrick. Based on evaluation, voice and cognitive therapy is medically necessary. Recommendations 1. ST 2xwk for voice and cognition Prognosis: Good. Recent improvement, good family support POC Short Term Goals 1. Pt will independently utilize daily/weekly transit planner to recall complex future events. 2. Pt will demonstrate increased word finding abilities as demonstrated by reduced time needed to find words in conversation in 95% of paraphasic occurrences. 3. Pt will independently use appropriate volume and articulatory movements during conversational speech with 95% accuracy. 4. Pt will self-report 80 or above on SIS v3 subdomain #2: These questions are about your memory and thinking. (reported normative data is 81.54 at 17.85 months post stroke). 5. Pt will self-report score of 89 on SIS v3 subdomain #4: The following items are about your ability to communicate with other people as well as your ability to understand what you read and what you hear in conversation. (reported normative data is 89.71 at 17.85 months post stroke). Nursing Home Goal Pt will demonstrate functional vocal production and increased memory and word finding abilities during conversation at home and in community. Thank you for this referral. Please call [phone] Cyn Grewal M.S., CCC-WAIST FITTER; Everton Bauer, [facility] [place] Physician Signature Date MTDD
--- NOTE | 2019-04-07 08:34 | PT PLAN OF CARE ---
Physician: Dr. 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 (all met) 2 months: Geno demonstrates corrective balance reactions, demonstrates postural control with retro balance perturbation, uses stairs, community ambulation at normal speed. (all met) Patient Compliance: Excellent Prognosis: Excellent Reasons for continuing therapy: S: Gavi reports she hasn't fallen, when she has balance challenges, she's able to catch her balance. She feels endurance is her biggest challenge now, that she's about 50% of her endurance from before her CVA. Posture: Heels 4" apart, steady midline head and trunk. Strength: R LE 4+/5 except R Tib. ant. still 4/5, calf 3-/5, L LE 5/5. Balance: Burden Balance Assessment 55/56, normal fall risk. Single leg stand 6 sec. R, 4 sec. L. Gait: Six minute walk test 1,283 feet, within the mean of 70-79 y/o woman of 1,332 feet. Mobility: Five times sit/stand within the norm for 70 - 79 y/o. A/P: Gavi Hedrick has improved strength, gait, balance and can work on endurance with a HEP. If you agree, we'll see Gavi once more to set up a HEP, then DC PT to HEP. Thank you. [place]
--- NOTE | 2019-04-08 15:16 | PT PLAN OF CARE ---
Physician: Dr. 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 (all met) 2 months: Geno demonstrates corrective balance reactions, demonstrates postural control with retro balance perturbation, uses stairs, community ambulation at normal speed. (all met) Reasons for discontinuing therapy: S: Gavi relates her endurance is down and she can walk laps on her long driveway for conditioning. Please see Plan of Care note of 04/07/19 for last measurements. A/P: Gavi Hedrick has normalized gait, balance, strength and can improve her endurance with walking. I'll DC PT to HEP. Thank you. [place]
[~2019-04-20 10:00] MED LIST changes: +ASPI-1471 PO; -RANI-375 PO; +RANI-886 PO
--- NOTE | 2019-04-20 11:25 | OT DISCHARGE SUMMARY ---
SUBJECTIVE: Patient is a 73 year old right hand dominate female referred to OP OT services for evaluation and continuation of treatment status post CVA that occurred on 02/08/2019. Patient has been treated for 11 visits. Reports that she is feeling better, she feels like she doesn't have to think about every movement with the right hand, she has more strength and endurance. 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#, now 46.3# (Age/gender normative= 49.6#) Left=41.7#, now 46.7# (Age/gender normative= 41.5#) Lateral Pinch Right = 12.8#, now 14# (Age/gender normative= 14.5#) Left=11.7#, now 12# (Age/gender normative= 13.8#) 3 Point Pinch Right =10.7#, now 11.5# (Age/gender normative=14.4#) Left=12#, now 12# (Age/gender normative= 14#) Sensation: Patient continues to report of decreased sensation in her palm, forearm, right shoulder-this has lola this way since her stroke in October Vision: no changes in her vision Special Test: 9 Hole Peg Test (dexterity) Right= 36 seconds, now 27 seconds (Age/gender normative= 20.2seconds) Left= 27 seconds, now 23 seconds (Age/gender normative= 22 seconds) ASSESSMENT Patient has increased her certified green building engineer and pinch strength of the right hand. Right UB strength is normal. Fine motor coordination has improved for both hands. Overall, patient is able to functionally use her right hand when completing self cares. At this time, patient has met her goals and is ready for discharge from OT services at this time. Short Term Goals 1.Patient will increase certified green building engineer strength on the right hand by 5# in order to hold objects. met 2.Patient will increase right hand lateral pinch by 2 # in order to open up containers. partially met 3.Patient will decrease time on the 9 Hole Peg test by 5 seconds in order to complete ADLs in a timely manner. met PLAN: Plan to discharge patient from OT services. Thank you for this referral. If you have any questions, concerns, or comments about this report or plan, please contact me at [phone]. Christina Castanon MS, OTR/L Occupational Therapist [place]
--- NOTE | 2019-04-27 10:16 | SLP DISCHARGE NOTE ---
VOCAL PRODUCTION DISCHARGE SUMMARY Patient Name: Gavi Hedrick Last Date of Treatment: 04/20/19 Date of : 45 Clinician: Oneida Nava MS, CCC-BALLISTIC TECHNICIAN Treatment Diagnosis: mild vocal dysfunction and cognitive deficits s/p CVA. The patient is a 73-year-old female who initially presented to outpatient speech-language pathology services at [facility] on 03/02/19 for completion of a vocal production and cognitive linguistic evaluation following CVA in January of 2019. Vocal production deficits were characterized by decreased speaking volume with poor diaphragmatic respiratory support and intermittent vocal strain. Cognitively, pt demonstrated mild deficits in short-term memory. The pt has consistently attended a total of 11 treatment sessions (2x each week) since her initial assessment. She has demonstrated excellent progress since start of care. The pt has been working towards the following goals: 1. Pt will independently utilize daily/weekly demand planner to recall complex future events. Goal MET on 03/31. Pt denies persistent difficulty with memory of past events or prospective recall for upcoming activities. She has successfully implemented external memory aides (e.g., to-do lists and calendars) in her daily life. Pt reports significant improvement in short-term memory since start of care. 2. Pt will demonstrate increased word finding abilities as demonstrated by reduced time needed to find words in conversation in 95% of paraphasic occurrences. Goal MET on 03/31. Pt responded well to instruction in word finding strategies, including semantic mapping, phonemic cues, and word associations. Pt reports significant reduction in paraphasic errors and anomic episodes since SOC. 3. Pt will independently use appropriate volume and articulatory movements during conversational speech with 95% accuracy. Goal MET on 04/20. Vocal production program has focused on instruction in techniques to promote diaphragmatic breath support and laryngeal/upper body relaxation, direct vocal exercises (sustained vowel production, pitch glides, word/phrase/sentence practice), instruction in "easy onset" technique for optimized vocal quality with reduction in hard glottal attack, and volitional volume modification exercises to improve vocal intensity and control of respiratory musculature. Pt exhibits average conversational volume of 70dB (WNL). Pt with reduced vocal strain, increased intensity, and overall improvement in vocal quality in comparison to status at baseline. Pt agreeable to continuing home program upon d/c from direct ST services. 4. Pt will self-report 80 or above on SIS v3 subdomain #2: These questions are about your memory and thinking. (reported normative data is 81.54 at 17.85 months post stroke). Goal MET on 04/20. Pt self-reported score of 86 on the SIS v3 subdomain #2, indicating she is approaching a full recovery to pre-morbid status in terms of her memory and thinking skills. 5. Pt will self-report score of 89 on SIS v3 subdomain #4: The following items are about your ability to communicate with other people as well as your ability to understand what you read and what you hear in conversation. (reported normative data is 89.71 at 17.85 months post stroke). Goal MET on 04/20. Pt self-reported score 100 on the SIS v3 subdomain #4, indicating she has reached a full recovery to pre-morbid status in terms of auditory and reading comprehension skills. Tool Procurement Coordinator Goal Pt will demonstrate functional vocal production and increased memory and word finding abilities during conversation at home and in community. POC MET on 04/20. All goals have been met. ST to d/c services at this time. SUMMARY The pt reports significant reduction in complaints regarding vocal production with increased vocal intensity and diaphragmatic breath support. The pt further reports near resolution of short-term memory and word finding deficits. Progress has improved the pts participation in conversations and daily tasks at home and in the community Thank you for referring this patient to [facility], Speech- Language Pathology. Please call [phone] to contact the BALLISTIC TECHNICIAN with questions or concerns. Respectfully, Oneida Nava M.S., [facility])-BALLISTIC TECHNICIAN Physician Signature Date [*] MTDD
== END 2019-04-20 18:00 | disposition home or self-care (01) ==
LOC: PT 10:00
PROVIDERS: ATTEND Family Medicine
DX: I69.351 Hemiplegia and hemiparesis following cerebral infarction affecting right dominant side (principal); R26.89 Other abnormalities of gait and mobility; E11.9 Type 2 diabetes mellitus without complications; F17.210 Nicotine dependence, cigarettes, uncomplicated; I10 Essential (primary) hypertension; H26.9 Unspecified cataract; Z91.81 History of falling
CPT/HCPCS: 92524; 97162; 97165; 97168